=== PATIENT | male | born 1965 | race Caucasian/White ===

== ENCOUNTER 2017-12-26 08:18 | Emergency (ER) | payer OTHER ==
[~2017-12-26] VITALS: Ht 170.2 cm; Wt 78.2 kg
[2017-12-26 08:28] VITALS: BP 157/83
[2017-12-26] MEDS ORDERED: DOXYCYCLINE HY100 MG PO (09:31)
[2017-12-26 09:50] VITALS: PULSE 89; TEMP 98.3
== END 2017-12-26 09:40 | disposition home or self-care (01) ==
LOC: COL.ER 08:18
DX: S01.01XA Laceration without foreign body of scalp, initial encounter (principal); S51.012A Laceration without foreign body of left elbow, initial encounter; R40.2412 Glasgow coma scale score 13-15, at arrival to emergency department; Z87.442 Personal history of urinary calculi; Z88.0 Allergy status to penicillin; Z94.83 Pancreas transplant status; W11.XXXA Fall on and from ladder, initial encounter

== ENCOUNTER 2018-01-02 06:45 | Emergency (ER) | payer OTHER ==
[~2018-01-02 06:45] MED LIST: DOXYCYCLINE HY100 MG PO
[2018-01-02 06:49] VITALS: BP 162/91; PULSE 85; TEMP 98.2
== END 2018-01-02 07:07 | disposition home or self-care, planned readmission (81) ==
LOC: COL.ER 06:45
DX: S51.012D Laceration without foreign body of left elbow, subsequent encounter (principal)